=== PATIENT | male | born 1945 | race Caucasian/White ===

== ENCOUNTER 2023-11-17 16:38 | Inpatient (IN) ==
--- NOTE | 2023-11-17 17:18 | Emergency Department Note ---
Impression & Plan Syncope, Laceration of eyebrow, right, Atrial fibrillation, Bradycardia, Facial bone fracture, Hypokalemia ED Provider Note NAME: CONNIE PENA AGE: 77 SEX: M : 1945 ARRIVES VIA: Ambulance INFORMANT: Patient, patient's family, EMS ED PROVIDER(S): Jaziel Camacho DO CHIEF COMPLAINT: Syncope HPI: The patient is a 77-year-old male who presented to the emergency department for an evaluation after having a syncopal episode. The patient was with a family member when he had an episode where he passed out. He fell striking his face. The patient complains of a headache. He denies having any chest pain or difficulty breathing. He denies having any nausea or vomiting. The patient denies having any recent illnesses such as fever or cough. The patient does have a history of hypertension. Apparently has been compliant with his outpatient medications otherwise. The patient presented by ambulance. He did suffer a laceration to his forehead. The wound was cared for prior to arrival. ROS: See above HPI for pertinent positives & negatives. A total of 10 systems reviewed and were otherwise negative. PAST MEDICAL HISTORY: See Below PAST SURGICAL HISTORY: See Below FAMILY HISTORY: See Below SOCIAL HISTORY: See Below HOME MEDICATIONS: See Below ALLERGIES: See Below VITALS: See Below PHYSICAL EXAMINATION: GENERAL: The patient is awake and alert. He does appear to be somewhat anxious. EYES: The conjunctivae are clear. The pupils are round and reactive. There is a laceration above the right eyelid. There is ecchymosis on the right upper eyelid. EARS, NOSE, MOUTH AND THROAT: The nose is without any evidence of any deformity. Mucous membranes are moist. Tongue is midline. NECK: The neck is nontender and supple. RESPIRATORY: Normal respiratory effort is noted there is no evidence of wheezing rhonchi or rales CARDIOVASCULAR: Irregular heart sounds were noted to auscultation. There is no definite murmur. GASTROINTESTINAL: The abdomen is soft. Abdomen is nontender. BACK: No midline tenderness or or step-off noted range of motion in flexion extension as well as rotation no signs of muscle spasm noted MUSCULOSKELETAL/EXTREMITIES: There is no evidence of gross deformity full range of motion is noted in the hips and shoulders. SKIN: There is no obvious evidence of any rash. There are no petechiae, pallor or cyanosis noted. NEUROLOGIC: Patient is awake and oriented to person place and situation. The patient recognizes his family numbers. Strength was symmetric. MEDICAL DECISION MAKING: The patient is a 77-year-old male who presented to the emergency department after having a syncopal episode. The patient arrived by ambulance. He did land directly on his face and injured his right eye and suffered multiple facial bone fractures. I discussed the patient's laboratory and radiographic studies with him. Ultimately I feel the likely cause of his syncope was bradycardia and new onset atrial fibrillation. When the patient arrived he did have a prehospital EKG which showed atrial fibrillation at 49 bpm but part of EKG showed a very slow rhythm which could be closer to the 30 bpm range. I discussed the patient's laboratory and radiographic studies with him. Given his findings I discussed his condition with the on-call [facility]. The patient will likely require further inpatient management as well as possible evaluation by oral maxillofacial. Triage Nursing notes reviewed. Prior medical records reviewed Vital Signs: reviewed and remarkable for no significant abnormalities Differential diagnosis: Vasovagal event, dehydration, infection, hypoglycemia, electrolyte abnormalities, cardiac sources, intracerebral event, pulmonary embolism, seizure, toxicologic, neurologic, as well as other pathologies. ER treatment provided: See below Diagnostics interpreted by me: ECG: EKG was obtained in the emergency department. My interpretation is atrial fibrillation at 96 bpm. PVCs were noted. Right bundle branch block pattern was noted. No previous tracing was available. Prehospital EKG was evaluated. My interpretation is atrial fibrillation at 49 bpm. No ectopy was noted but this compares similar to the tracing obtained in the emergency department. Cardiac Monitoring: An order was placed for continuous cardiac monitoring. The monitor shows a rate of 72 bpm with atrial fibrillation. Laboratory studies: As stated above and show below. Imaging studies: See below. Radiographic imaging was reviewed by myself Consultation(s): I discussed this case with Dr. Ricci who is on-call for the [facility] Past Med/Surg History Medical History High cholesterol Hypothyroid Dementia Hypertension Social History Smoking Status: Former smoker Tobacco Type: Pipe Preferred Language: Icelandic Feels Safe at Home: Yes Results & Data (ED) Vital Signs Vital Signs - 24 hr 11/17/23 16:53 11/17/23 17:00 11/17/23 17:17 Pulse Rate 97 H 85 91 H Pulse Rate from SpO2 Sensor 87 Pulse Rhythm Irregular Respiratory Rate 16 17 Respiratory Effort / Characteristics Non-Labored Spontaneous Respiratory Depth Normal Respiratory Pattern Regular Blood Pressure 102/74 124/83 Blood Pressure Mean 83 96 Blood Pressure Position Lying Pulse Oximetry 93 93 Oxygen Delivery Method Room Air Room Air Sepsis Recent Fever Within 48 Hours No Sepsis New/Unexplained Change in Mental Status N/A Sepsis Action Taken by Nursing No Action Required 11/17/23 17:30 11/17/23 18:10 11/17/23 18:30 Pulse Rate 73 69 62 Pulse Rate from SpO2 Sensor 76 72 Pulse Rhythm Respiratory Rate 17 19 17 Respiratory Effort / Characteristics Respiratory Depth Respiratory Pattern Blood Pressure 117/84 127/70 119/84 Blood Pressure Mean 95 89 95 Blood Pressure Position Pulse Oximetry 96 99 95 Oxygen Delivery Method Room Air Room Air Room Air Sepsis Recent Fever Within 48 Hours Sepsis New/Unexplained Change in Mental Status Sepsis Action Taken by Nursing 11/17/23 19:00 Pulse Rate 72 Pulse Rate from SpO2 Sensor 70 Pulse Rhythm Respiratory Rate 20 Respiratory Effort / Characteristics Respiratory Depth Respiratory Pattern Blood Pressure 138/88 Blood Pressure Mean 104 Blood Pressure Position Pulse Oximetry 92 Oxygen Delivery Method Room Air Sepsis Recent Fever Within 48 Hours Sepsis New/Unexplained Change in Mental Status Sepsis Action Taken by Detention Medications Current Medication List: was personally reviewed by me Laboratory Data Attestation: I reviewed the patient's lab results. 11/17/23 Unknown 11/17/23 Unknown Lab Results 11/17/23 Range/Units Unknown WBC 7.46 (4.8-10.8) K/ul RBC 4.72 (4.70-6.10) M/uL Hgb 14.9 (14.0-18.0) g/dl Hct 44.1 (42.0-52.0) % MCV 93.4 (80.0-100.0) fL MCH 31.6 (25.0-34.0) pg MCHC 33.8 (32.0-36.0) g/dL RDW Std Deviation 46.5 H (36.4-46.3) fL RDW Coeff of Gay 13.6 (11.5-14.5) % Plt Count 189 (130-400) K/uL MPV 10.6 (9.4-12.4) fL Immature Gran % (Auto) 0.4 % Neut % (Auto) 55.1 % Lymph % (Auto) 30.7 % [place] % (Auto) 10.7 % Eos % (Auto) 2.7 % Baso % (Auto) 0.4 % Neut # (Auto) 4.11 (1.40-6.50) K/uL Lymph # (Auto) 2.29 (1.20-3.40) K/uL [place] # (Auto) 0.80 H (0.11-0.59) K/uL Eos # (Auto) 0.20 (0.00-0.50) K/uL Baso # (Auto) 0.03 (0.00-0.20) K/uL Immature Gran # (Auto) 0.03 (0.01-0.20) K/uL PT 11.4 (9.0-12.0) Seconds INR 1.0 (0.9-1.1) APTT 26 (21-31) Seconds PTT Ratio 0.9 Sodium 140 (136-145) mmol/L Potassium 3.3 L (3.5-5.1) mmol/L Chloride 108 H (98-107) mmol/L Carbon Dioxide 20 L (21-32) mmol/L Anion Gap 12 H (3-11) BUN 21 (6-23) mg/dl Creatinine 0.82 (0.6-1.4) mg/dl Est Cr Clr Drug Dosing Not Reportable Est GFR ( Amer) 99.6 ml/min Est GFR (Non-Af Amer) 85.9 ml/min BUN/Creatinine Ratio 25.6 H (10-20) Glucose 138 H (70-99(Fasting)) mg/dl Calcium 8.7 (8.6-10.3) mg/dl Magnesium 1.9 (1.7-2.4) mg/dl Total Bilirubin 0.5 (0.2-1.0) mg/dl AST 23 (13-39) U/L ALT 18 (7-52) U/L Alkaline Phosphatase 84 (34-104) U/L Total Creatine Kinase 101 (30-223) U/L Troponin I High Sens 2.6 (0-20) pg/ml Total Protein 6.3 (6.0-8.3) gm/dl Albumin 4.0 (3.4-5.0) gm/dl Globulin 2.3 L (2.5-4.0) gm/dl Albumin/Globulin Ratio 1.7 (0.9-2) TSH 1.807 (0.300-4.500) uIu/ml Administered Medications Discontinued Medications Sodium Chloride (Nss) 500 mls @ 999 mls/hr IV .Q31M JENNA Stop: 11/17/23 18:00 Last Infusion: 11/17/23 18:45 Dose: Infused Documented By: Admin: 11/17/23 17:29 Dose: 999 mls/hr Documented By: STEVE Potassium Chloride (K Robert / Wtr) 10 meq in 100 mls @ 100 mls/hr IV ONE ONE Stop: 11/17/23 18:54 Last Infusion: 11/17/23 20:00 Dose: Infused Documented By: Admin: 11/17/23 18:51 Dose: 100 mls/hr Documented By: BUCK Magnesium Sulfate/Dextrose (Magnesium Sulfate / D5w) 1 gm in 100 mls @ 100 mls/hr IV NOW STA Stop: 11/17/23 18:54 Last Infusion: 11/17/23 20:00 Dose: Infused Documented By: Admin: 11/17/23 18:51 Dose: 100 mls/hr Documented By: BUCK Lidocaine HCl (Xylocaine 1%/Sod Bicarb 20 Ml Vial) 20 ml INFIL NOW ONE Stop: 11/17/23 17:19 Last Admin: 11/17/23 20:05 Dose: Not Given Documented By: EVAN Imaging Data Attestation: I personally reviewed and interpreted this imaging study as follows: My Impression: CT of the brain was obtained in the emergency department. My interpretation is no intracranial hemorrhage or mass effect, final report below. 1 view chest x-ray was obtained in the emergency department. My interpretation is no free air or definite filtrate, final report below. Radiologist's Impression: Cervical Spine CT 11/17/23 17:16 CT OF THE CERVICAL SPINE WITHOUT CONTRAST CLINICAL HISTORY: fall COMPARISON STUDY: No previous studies for comparison. TECHNIQUE: Helical axial images of the cervical spine were obtained without IV contrast. Sagittal and coronal reconstructions were viewed. Automated exposure control was utilized for the study. A dose lowering technique was utilized adhering to the principles of ALARA. FINDINGS: Alignment of the cervical spine is anatomic. Vertebral body heights are maintained. No acute cervical spine fracture or subluxation is present. There is no prevertebral edema. Facet joints are intact. Multifocal venous gas is noted. Gas within the anterior epidural space is likely within epidural venous plexus. Mild multilevel degenerative changes within the cervical spine are present. Several acute right-sided facial fractures are better depicted on the head CT which will be reported separately. IMPRESSION: 1. No acute cervical spine fracture or subluxation. 2. Multifocal venous gas. Although nonspecific, this is likely related to IV insertion. ACT 112: Negative or not required by law. Electronically signed by: Federico Pitt M.D. 11/17/2023 7:44 PM Chest X-Ray 11/17/23 17:16 XR chest 1V portable CLINICAL HISTORY: fall COMPARISON STUDY: No previous studies for comparison. FINDINGS: No pneumothorax is present. There is no definite pleural effusion. There is a suspected large hiatal hernia. In addition, there is hazy right lower lung opacity. This may also be related to the pleural effusion. There is no evidence for pulmonary edema. IMPRESSION: 1. No pneumothorax. 2. Large hiatal hernia. 3. Apparent hazy right lower lung opacity. This is indeterminate although may also be related to the hiatal hernia. Follow-up nonemergent PA and lateral chest radiographs are recommended for further evaluation. ACT 112: Negative or not required by law. Electronically signed by: Federico Pitt M.D. 11/17/2023 6:[address] 11/17/23 17:16 CT OF THE HEAD WITHOUT CONTRAST CLINICAL HISTORY: syncope COMPARISON STUDY: No previous studies for comparison. CT DOSE: 1153.31 mGy.cm TECHNIQUE: Helical axial images of the head were obtained without IV contrast. Automated exposure control was utilized for the study. A dose lowering technique was utilized adhering to the principles of ALARA. FINDINGS: No acute intracranial hemorrhage, midline shift or mass effect is present. The ventricular system is unremarkable. The basal cisterns are patent. No extra-axial collections are identified. Note is made of acute comminuted displaced fractures of the anterior and posterior anthony of the right maxillary sinus as well as the right orbital floor. There is also an acute nondisplaced fracture of the lateral and anterior anthony of the right orbit. The right globe appears intact. There is no retrobulbar hematoma however there is suggestion of mild right-sided proptosis. Gas within the adjacent soft tissues is related to the fracture. The right maxillary sinus is largely opacified. In addition, there is extensive venous gas, particularly within the cavernous sinus as well as gas within the right superior ophthalmic vein. There is a right periorbital contusion. IMPRESSION: 1. No acute intracranial findings. 2. No calvarial fractures. 3. Right periorbital contusion. Acute fractures of the anthony of the right maxillary sinus and right orbit, as described above. Adjacent soft tissue gas. Mild right proptosis without definite retrobulbar hematoma. Opacified right maxillary sinus related to the fractures. Facial bone CT is recommended for further evaluation. 4. Extensive venous gas. This is nonspecific but may be related to IV placement. ACT 112: Negative or not required by law. Electronically signed by: Federico Pitt M.D. 11/17/2023 7:05 PM Discharge Plan Visit Data Chief Complaint: Syncope ED Provider: Jaziel Camacho Discharge Problem: Syncope, Laceration of eyebrow, right, Atrial fibrillation, Bradycardia, Facial bone fracture, Hypokalemia Patient Disposition: Being Evaluated by Hospitalist Discharge Instructions Activity Restrictions/Additional Instructions: Keep a thin layer of bacitracin ointment applied to the wound until the sutures are removed. Do not do anything that would cause the stitches to pull out. Do not swim or submerge your head under water. Showering is acceptable and encouraged after 24 hours. Suture removal should occur in 6-7 days. Once the stitches are removed, the laceration is most prone to opening back up because it is not fully healed. Be cautious with the laceration until it is fully healed. Watch for signs and symptoms of infection including but not limited to: spreading skin redness, worsening pain, worsening swelling, red streaks, pus drainage, wound pulling apart. Scar prevention: aggressively protect the scar from UV light for up to 1 year. Once fully healed, gently massage the scar to break up scar tissue. You can also use scar reducing creams with silicone such as ScarAway silicone serum found at pharmacies over the counter of which may be applied according to package. Please do not apply for more than 3 months. Use this after wound is fully healed. Please do not use creams with vitamin E, as these can cause irritation and skin thinning. If you are unhappy with the scar after 6 months to 1 year, consider seeing a plastic surgeon for possible scar revision. Forms Stand Alone Forms: My [facility] Referrals Referrals: PCP,NO [Physician] - Discharge Problem: Syncope Qualifiers: Syncope type: unspecified Qualified Code(s): R55 - Syncope and collapse Laceration of eyebrow, right Qualifiers: Encounter type: initial encounter Qualified Code(s): S01.111A - Laceration without foreign body of right eyelid and periocular area, initial encounter Atrial fibrillation Qualifiers: Atrial fibrillation type: unspecified Qualified Code(s): I48.91 - Unspecified atrial fibrillation Facial bone fracture Qualifiers: Encounter type: initial encounter Facial bone/location: unspecified facial bone Fracture type: closed Qualified Code(s): S02.92XA - Unspecified fracture of facial bones, initial encounter for closed fracture
[2023-11-17 17:19] LABS: Basophils # (auto) 0.03 K/uL (0.00-0.20); Basophils % (auto) 0.4 %; Eosinophils % (auto) 2.7 %; Hematocrit (blood only) 44.1 % (42.0-52.0); Hemoglobin 14.9 g/dl (14.0-18.0); Immature Granulocytes # (auto) 0.03 K/uL (0.01-0.20); Immature Granulocytes % (auto) 0.4 %; Lymphocytes # (auto) 2.29 K/uL (1.20-3.40); Lymphocytes % (auto) 30.7 %; Mean Corpuscular Hemoglobin 31.6 pg (25.0-34.0); Mean Corpuscular Hgb Conc 33.8 g/dL (32.0-36.0); Mean Corpuscular Volume 93.4 fL (80.0-100.0); Mean Platelet Volume 10.6 fL (9.4-12.4); Monocytes % (auto) 10.7 %; Neutrophils # (auto) 4.11 K/uL (1.40-6.50); Neutrophils % (auto) 55.1 %; Platelet Count 189 K/uL (130-400); RDW Coefficient of Variation 13.6 % (11.5-14.5); RDW Standard Deviation 46.5 fL (36.4-46.3); Red Blood Count 4.72 M/uL (4.70-6.10); White Blood Count 7.46 K/ul (4.8-10.8)
[2023-11-17] MEDS: SODIUM CHLORIDE 0.9% 500 ML IV SCH (17:29)
[2023-11-17 17:41] LABS: Troponin I High Sensitivity 2.6 pg/ml (0-20)
[2023-11-17 17:42] LABS: Alanine Aminotransferase 18 U/L (7-52); Albumin Globulin Ratio 1.7 (0.9-2); Alkaline Phosphatase 84 U/L (34-104); Anion Gap 12 (3-11); Aspartate Aminotransferase 23 U/L (13-39); BUN Creatinine Ratio 25.6 (10-20); Bilirubin,Total 0.5 mg/dl (0.2-1.0); Blood Urea Nitrogen 21 mg/dl (6-23); Calcium 8.7 mg/dl (8.6-10.3); Carbon Dioxide 20 mmol/L (21-32); Chloride 108 mmol/L (98-107); Creatine Kinase 101 U/L (30-223); Est GFR (African American) 99.6 ml/min; Est GFR (Non-African American) 85.9 ml/min; Globulin 2.3 gm/dl (2.5-4.0); Glucose 138 mg/dl (70-99(Fasting)); Potassium 3.3 mmol/L (3.5-5.1); Sodium 140 mmol/L (136-145); Total Protein 6.3 gm/dl (6.0-8.3)
[2023-11-17 17:47] LABS: Partial Thromboplastin Ratio 0.9; Partial Thromboplastin Time 26 Seconds (21-31); Prothrombin Time 11.4 Seconds (9.0-12.0)
[2023-11-17 17:51] LABS: Thyroid Stimulating Hormone 1.807 uIu/ml (0.300-4.500)
[2023-11-17 18:29] LABS: Magnesium 1.9 mg/dl (1.7-2.4)
--- NOTE | 2023-11-17 18:46 | XRay Report ---
XR chest 1V portable CLINICAL HISTORY: fall COMPARISON STUDY: No previous studies for comparison. FINDINGS: No pneumothorax is present. There is no definite pleural effusion. There is a suspected lar ge hiatal hernia. In addition, there is hazy right lower lung opacity. This may also be related to th e pleural effusion. There is no evidence for pulmonary edema. IMPRESSION: 1. No pneumothorax. 2. Large hiatal hernia. 3. Apparent hazy right lower lung opacity. This is indeterminate although may also be related to the hiatal hernia. Follow-up nonemergent PA and lateral chest radiographs are recommended for further arash luation. ACT 112: Negative or not required by law. Electronically signed by: Federico Pitt M.D. 11/17/2023 6:44 PM
[2023-11-17] MEDS: POTASSIUM CHLORIDE / WTR 10 MEQ/100 ML PLCT IV ONE (18:51)
[2023-11-17] MEDS: MAGNESIUM SULFATE / D5W 1 GM/100 ML BAG IV STA (18:51)
--- NOTE | 2023-11-17 19:08 | CT Scan Report ---
CT OF THE HEAD WITHOUT CONTRAST CLINICAL HISTORY: syncope COMPARISON STUDY: No previous studies for comparison. CT DOSE: 1153.31 mGy.cm TECHNIQUE: Helical axial images of the head were obtained without IV contrast. Automated exposure con trol was utilized for the study. A dose lowering technique was utilized adhering to the principles o f ALARA. FINDINGS: No acute intracranial hemorrhage, midline shift or mass effect is present. The ventricular system is unremarkable. The basal cisterns are patent. No extra-axial collections are identified. Not e is made of acute comminuted displaced fractures of the anterior and posterior anthony of the right ma xillary sinus as well as the right orbital floor. There is also an acute nondisplaced fracture of the lateral and anterior anthony of the right orbit. The right globe appears intact. There is no retrobulb ar hematoma however there is suggestion of mild right-sided proptosis. Gas within the adjacent soft t issues is related to the fracture. The right maxillary sinus is largely opacified. In addition, there is extensive venous gas, particularly within the cavernous sinus as well as gas within the right sup erior ophthalmic vein. There is a right periorbital contusion. IMPRESSION: 1. No acute intracranial findings. 2. No calvarial fractures. 3. Right periorbital contusion. Acute fractures of the anthony of the right maxillary sinus and right o rbit, as described above. Adjacent soft tissue gas. Mild right proptosis without definite retrobulbar hematoma. Opacified right maxillary sinus related to the fractures. Facial bone CT is recommended fo r further evaluation. 4. Extensive venous gas. This is nonspecific but may be related to IV placement. ACT 112: Negative or not required by law. Electronically signed by: Fedreico Pitt M.D. 11/17/2023 7:05 PM
[2023-11-17] MEDS: LIDO/EPINEPHRINE/SOD BICARB 50 ML VIAL INFIL ONE (19:20)
--- NOTE | 2023-11-17 19:21 | Emergency Department Note ---
ED Visit Note I was asked by ED attending Dr. Camacho to evaluate and repaired the patient's laceration just under his right eyebrow. Please refer to Dr. Camacho's note for full details on the patient's emergency department visit, workup, and disposition. The laceration is located just under the right eyebrow, slightly irregular but mostly curvilinear in nature. Does extend into the subcutaneous tissue with mild persistent bleeding. Laceration repair performed by myself Procedure: Wound was anesthetized with 3 mL lidocaine 1% with epinephrine. Copiously irrigated with sterile saline. Draped. Repaired with 5, 6-0 nylon simple interrupted sutures. Dressed with bacitracin ointment. Total laceration length 2.5 cm. Suture removal in 6-7 days. Keep a thin layer of bacitracin ointment applied to the wound until sutures are removed Outlined scar prevention techniques. .
--- NOTE | 2023-11-17 19:47 | CT Scan Report ---
CT OF THE CERVICAL SPINE WITHOUT CONTRAST CLINICAL HISTORY: fall COMPARISON STUDY: No previous studies for comparison. TECHNIQUE: Helical axial images of the cervical spine were obtained without IV contrast. Sagittal a nd coronal reconstructions were viewed. Automated exposure control was utilized for the study. A do se lowering technique was utilized adhering to the principles of ALARA. FINDINGS: Alignment of the cervical spine is anatomic. Vertebral body heights are maintained. No acut e cervical spine fracture or subluxation is present. There is no prevertebral edema. Facet joints are intact. Multifocal venous gas is noted. Gas within the anterior epidural space is likely within epi dural venous plexus. Mild multilevel degenerative changes within the cervical spine are present. Claribel ral acute right-sided facial fractures are better depicted on the head CT which will be reported sepa rately. IMPRESSION: 1. No acute cervical spine fracture or subluxation. 2. Multifocal venous gas. Although nonspecific, this is likely related to IV insertion. ACT 112: Negative or not required by law. Electronically signed by: Federico Pitt M.D. 11/17/2023 7:44 PM
[2023-11-17] MEDS: XYLOCAINE 1%/SOD BICARB 20 ML VIAL INFIL ONE (20:05)
[2023-11-17] MEDS: AMPICILLIN/SULBACTAM SOD 3,000 MG in SODIUM CHLOR 0.9% MINI-B 100 ML IV STA (21:13)
[2023-11-17] MEDS: POTASSIUM CHLORIDE CRTAB 20 MEQ TABCR PO STA ×2 (21:55→23:38)
[2023-11-17] MEDS: MAGNESIUM SULFATE / D5W 1 GM/100 ML BAG IV ONE (22:01)
[2023-11-17] MEDS: POTASSIUM CHLORIDE 20 MEQ in LACTATED RINGER'S 1,000 ML IV ONE (22:01)
[2023-11-17] MEDS: Patient's HEIGHT &/or WEIGHT Needed ONE (22:06)
--- NOTE | 2023-11-17 23:10 | History & Physical Report ---
Date of Service November 17, 2023 Assessment & Plan (1) Atrial fibrillation with controlled ventricular rate: Plan: New onset as per family Rule out tachybradycardia syndrome given bradycardic episode as potential reason for syncopal event, Aricept possibly contributory to bradycardic event Traumatic right orbitozygomatic fracture secondary to fall hypertension, stable BP at the ER hyperlipidemia, on statin Rx hypothyroidism, euthyroid as of today's TSH hx dementia Hyperglycemia ro DM Hypokalemia possibly from decreased p.o. intake today as per family past tobacco abuse PCU TTE, Cardiology consult Re: New onset A-fib Hold off on AVN blockers for A-fib for now given bradycardic event Hold Aricept for now given transient bradycardia Hold off on anticoagulation given traumatic right facial fracture with epistaxis Check orthostatic vitals as alternative reason for syncope Maxillofacial consult Re: Traumatic right facial fracture N.p.o. in anticipation of surgery Replace potassium Check hemoglobin A1c DVT prophylaxis. SCDs Re: Traumatic facial fracture Full code as per , Ms. Kayy Lord. She requests updates from providers through [phone]. Text document was generated using [employer] voice recognition software. It may contain grammatical or spelling errors. Kindly contact undersigned for clarification of any documentation item in question. History of Present Illness Primary Care Provider: CHRIS Candelaria History obtained from patient, family, and records. Limited history from patient secondary to dementia. Patient is a resident of [facility] who is in town with his to visit her granddaughter who is a [employer] student. Medical history significant for hypertension, hyperlipidemia, hypothyroidism, mood disorder, dementia, past tobacco abuse. Patient was walking with a family member when patient suddenly passed out resulting in facial trauma. Was just out for a few moments as per family. Epistaxis with right facial contusion/upper brow laceration noted. Patient denies chest pain, SOB. Denies visual problems posttrauma. Note witnessed seizures or urinary incontinence. Patient says he has passed out before but cannot give additional details. Patient was not eating well today for some reason as per family. No flulike symptoms. Right eyebrow laceration repaired at the ER. A-fib noted at the ER. No prior episodes as per family. Transient bradycardia of 50s noted at the ER. Medical History as above Surgical History : Appendectomy, carpal tunnel surgery Family History : DM Personal/Social history : Past tobacco abuse, no EtOH intake, lives with Allergies Allergy/AdvReac Type Severity Reaction Status Date / Time aspirin AdvReac Nausea Verified 11/17/23 21:12 Home Medications Medication Instructions Recorded Confirmed Type atorvastatin 10 mg tablet 10 mg PO QPM 11/17/23 11/17/23 History calcium carbonate (Calcium 600) 600 mg PO DAILY 11/17/23 11/17/23 History cholecalciferol (vitamin D3) 25 25 mcg PO DAILY 11/17/23 11/17/23 History mcg (1,000 unit) tablet (Vitamin D3) citalopram 10 mg tablet 10 mg PO QAM 11/17/23 11/17/23 History cyanocobalamin (vitamin B-12) 500 500 mcg PO DAILY 11/17/23 11/17/23 History mcg tablet (Vitamin B-12) donepezil 5 mg tablet 5 mg PO QPM 11/17/23 11/17/23 History ferrous sulfate 325 mg (65 mg 325 mg PO DAILY 11/17/23 11/17/23 History iron) tablet (iron) glucosamine sulf dipot 1 cap PO DAILY 11/17/23 11/17/23 History chlr,msm,chond 550 mg-C 30 mg-kathie 1 mg capsule (Glucosamine Chondroitin) levothyroxine 125 mcg tablet 125 mcg PO QPM 11/17/23 11/17/23 History lisinopril 5 mg tablet 5 mg PO QAM 11/17/23 11/17/23 History magnesium 250 mg tablet 250 mg PO DAILY 11/17/23 11/17/23 History multivitamin 1 tab PO DAILY 11/17/23 11/17/23 History omega-3 fatty acids 1,000 mg 1,000 mg PO DAILY 11/17/23 11/17/23 History capsule omeprazole 40 mg capsule,delayed 40 mg PO DAILY 11/17/23 11/17/23 History release turmeric root extract 500 mg tablet 500 mg PO DAILY 11/17/23 11/17/23 History vitamin A-vitamin C-vit E-min 2 tab PO DAILY 11/17/23 11/17/23 History tablet Past Med/Surg History Medical History High cholesterol Hypothyroid Dementia Hypertension Social History (Reviewed 11/17/23 @ 17:22 by HAFSA Jeter Smoking Status: Former smoker Tobacco Type: Pipe Hx Alcohol Use: Yes Alcohol type: beer Hx Substance Use: No Preferred Language: Croatian Communication Ability: Effective Software Test Analyst Required: No Beliefs That Will Affect Care: None Current Living Situation: Spouse Feels Safe at Home: Yes Safety Concerns: Feels Safe At This Time Assistive Devices: None Review of Systems Review of Systems: Could not be reliably obtained secondary to dementia Physical Exam Physical Exam: GENERAL: Comfortable, demented, pleasant, no respiratory distress SKIN: Normal color, warm HEENT: alopecia, tender ecchymosis right lateral orbital area , pink palpebral conjunctivae, dry buccal mucosa NECK : Supple, no tenderness CHEST : CTA, no tenderness HEART : Irregular, no obvious murmurs ABDOMEN: Some distention, nontender EXTREMITIES : No LE swelling/tenderness, no other conspicuous deformities noted NEUROLOGIC : Demented, no facial asymmetry, gait and stance not assessed Results & Data Results & Data Vital Signs (Past 12 Hours) Vital Signs Pulse Resp BP Pulse Ox O2 Del Method 11/17/23 21:12 56 L 11/17/23 20:33 95 Room Air 11/17/23 20:33 95 Room Air 11/17/23 19:00 72 20 138/88 92 Room Air 11/17/23 18:30 62 17 119/84 95 Room Air 11/17/23 18:10 69 19 127/70 99 Room Air 11/17/23 17:30 73 17 117/84 96 Room Air 11/17/23 17:17 91 H 11/17/23 17:00 85 17 124/83 93 Room Air 11/17/23 16:53 97 H 16 102/74 93 Room Air Laboratory Results Laboratory Results WBC 7.46 K/ul (4.8-10.8) 11/17/23 Unknown RBC 4.72 M/uL (4.70-6.10) 11/17/23 Unknown Hgb 14.9 g/dl (14.0-18.0) 11/17/23 Unknown Hct 44.1 % (42.0-52.0) 11/17/23 Unknown MCV 93.4 fL (80.0-100.0) 11/17/23 Unknown MCH 31.6 pg (25.0-34.0) 11/17/23 Unknown MCHC 33.8 g/dL (32.0-36.0) 11/17/23 Unknown RDW Std Deviation 46.5 fL (36.4-46.3) H 11/17/23 Unknown RDW Coeff of Gay 13.6 % (11.5-14.5) 11/17/23 Unknown Plt Count 189 K/uL (130-400) 11/17/23 Unknown MPV 10.6 fL (9.4-12.4) 11/17/23 Unknown Immature Gran % (Auto) 0.4 % 11/17/23 Unknown Neut % (Auto) 55.1 % 11/17/23 Unknown Lymph % (Auto) 30.7 % 11/17/23 Unknown Lanier % (Auto) 10.7 % 11/17/23 Unknown Eos % (Auto) 2.7 % 11/17/23 Unknown Baso % (Auto) 0.4 % 11/17/23 Unknown Neut # (Auto) 4.11 K/uL (1.40-6.50) 11/17/23 Unknown Lymph # (Auto) 2.29 K/uL (1.20-3.40) 11/17/23 Unknown Lanier # (Auto) 0.80 K/uL (0.11-0.59) H 11/17/23 Unknown Eos # (Auto) 0.20 K/uL (0.00-0.50) 11/17/23 Unknown Baso # (Auto) 0.03 K/uL (0.00-0.20) 11/17/23 Unknown Immature Gran # (Auto) 0.03 K/uL (0.01-0.20) 11/17/23 Unknown PT 11.4 Seconds (9.0-12.0) 11/17/23 Unknown INR 1.0 (0.9-1.1) 11/17/23 Unknown APTT 26 Seconds (21-31) 11/17/23 Unknown PTT Ratio 0.9 11/17/23 Unknown Sodium 140 mmol/L (136-145) 11/17/23 Unknown Potassium 3.3 mmol/L (3.5-5.1) L 11/17/23 Unknown Chloride 108 mmol/L (98-107) H 11/17/23 Unknown Carbon Dioxide 20 mmol/L (21-32) L 11/17/23 Unknown Anion Gap 12 (3-11) H 11/17/23 Unknown BUN 21 mg/dl (6-23) 11/17/23 Unknown Creatinine 0.82 mg/dl (0.6-1.4) 11/17/23 Unknown Est Cr Clr Drug Dosing Not Reportable 11/17/23 Unknown Est GFR ( Amer) 99.6 ml/min 11/17/23 Unknown Est GFR (Non-Af Amer) 85.9 ml/min 11/17/23 Unknown BUN/Creatinine Ratio 25.6 (10-20) H 11/17/23 Unknown Glucose 138 mg/dl (70-99(Fasting)) H 11/17/23 Unknown Calcium 8.7 mg/dl (8.6-10.3) 11/17/23 Unknown Magnesium 1.9 mg/dl (1.7-2.4) 11/17/23 Unknown Total Bilirubin 0.5 mg/dl (0.2-1.0) 11/17/23 Unknown AST 23 U/L (13-39) 11/17/23 Unknown ALT 18 U/L (7-52) 11/17/23 Unknown Alkaline Phosphatase 84 U/L (34-104) 11/17/23 Unknown Total Creatine Kinase 101 U/L (30-223) 11/17/23 Unknown Troponin I High Sens 2.6 pg/ml (0-20) 11/17/23 Unknown Total Protein 6.3 gm/dl (6.0-8.3) 11/17/23 Unknown Albumin 4.0 gm/dl (3.4-5.0) 11/17/23 Unknown Globulin 2.3 gm/dl (2.5-4.0) L 11/17/23 Unknown Albumin/Globulin Ratio 1.7 (0.9-2) 11/17/23 Unknown TSH 1.807 uIu/ml (0.300-4.500) 11/17/23 Unknown Impressions Cervical Spine CT 11/17/23 17:16 CT OF THE CERVICAL SPINE WITHOUT CONTRAST CLINICAL HISTORY: fall COMPARISON STUDY: No previous studies for comparison. TECHNIQUE: Helical axial images of the cervical spine were obtained without IV contrast. Sagittal and coronal reconstructions were viewed. Automated exposure control was utilized for the study. A dose lowering technique was utilized adhering to the principles of ALARA. FINDINGS: Alignment of the cervical spine is anatomic. Vertebral body heights are maintained. No acute cervical spine fracture or subluxation is present. There is no prevertebral edema. Facet joints are intact. Multifocal venous gas is noted. Gas within the anterior epidural space is likely within epidural venous plexus. Mild multilevel degenerative changes within the cervical spine are present. Several acute right-sided facial fractures are better depicted on the head CT which will be reported separately. IMPRESSION: 1. No acute cervical spine fracture or subluxation. 2. Multifocal venous gas. Although nonspecific, this is likely related to IV insertion. ACT 112: Negative or not required by law. Electronically signed by: Federico Pitt M.D. 11/17/2023 7:44 PM Chest X-Ray 11/17/23 17:16 XR chest 1V portable CLINICAL HISTORY: fall COMPARISON STUDY: No previous studies for comparison. FINDINGS: No pneumothorax is present. There is no definite pleural effusion. There is a suspected large hiatal hernia. In addition, there is hazy right lower lung opacity. This may also be related to the pleural effusion. There is no evidence for pulmonary edema. IMPRESSION: 1. No pneumothorax. 2. Large hiatal hernia. 3. Apparent hazy right lower lung opacity. This is indeterminate although may also be related to the hiatal hernia. Follow-up nonemergent PA and lateral chest radiographs are recommended for further evaluation. ACT 112: Negative or not required by law. Electronically signed by: Federico Pitt M.D. 11/17/2023 6:[address] 11/17/23 17:16 CT OF THE HEAD WITHOUT CONTRAST CLINICAL HISTORY: syncope COMPARISON STUDY: No previous studies for comparison. CT DOSE: 1153.31 mGy.cm TECHNIQUE: Helical axial images of the head were obtained without IV contrast. Automated exposure control was utilized for the study. A dose lowering technique was utilized adhering to the principles of ALARA. FINDINGS: No acute intracranial hemorrhage, midline shift or mass effect is present. The ventricular system is unremarkable. The basal cisterns are patent. No extra-axial collections are identified. Note is made of acute comminuted displaced fractures of the anterior and posterior anthony of the right maxillary sinus as well as the right orbital floor. There is also an acute nondisplaced fracture of the lateral and anterior anthony of the right orbit. The right globe appears intact. There is no retrobulbar hematoma however there is suggestion of mild right-sided proptosis. Gas within the adjacent soft tissues is related to the fracture. The right maxillary sinus is largely opacified. In addition, there is extensive venous gas, particularly within the cavernous sinus as well as gas within the right superior ophthalmic vein. There is a right periorbital contusion. IMPRESSION: 1. No acute intracranial findings. 2. No calvarial fractures. 3. Right periorbital contusion. Acute fractures of the anthony of the right maxillary sinus and right orbit, as described above. Adjacent soft tissue gas. Mild right proptosis without definite retrobulbar hematoma. Opacified right maxillary sinus related to the fractures. Facial bone CT is recommended for further evaluation. 4. Extensive venous gas. This is nonspecific but may be related to IV placement. ACT 112: Negative or not required by law. Electronically signed by: Federico Pitt M.D. 11/17/2023 7:05 PM Diagnostic Findings EKG as per my interpretation : Rate 95, A-fib, RAD, RBBB, T wave abnormalities inferior leads
[2023-11-17] MEDS ORDERED: traMADol HCL 50 MG TABLET PO PRN (23:14)
[2023-11-17] MEDS ORDERED: ACETAMINOPHEN 325 MG TAB PO PRN (23:14)
[2023-11-17] MEDS ORDERED: PROMETHAZINE HCL 6.25 MG in SODIUM CHLORIDE 0.9% 50 ML IV PRN (23:14)
--- NOTE | 2023-11-18 00:59 | CT Scan Report ---
Exam(s): CT FACIAL Without Contrast EXAM: CT Maxillofacial Without Intravenous Contrast CLINICAL HISTORY: Fracture TECHNIQUE: Axial computed tomography images of the face without intravenous contrast. CTDI is 36.26 mGy and DLP is 677.22 mGy-cm. Automated exposure control was utilized for the study. A dose lowering technique was utilized adhering to the principles of ALARA. COMPARISON: No relevant prior studies available. FINDINGS: Bones/joints: Minimally displaced blowout fracture of the right infraorbital rim. Mildly displaced fractures of the anterior, medial and lateral anthony of the right maxillary sinusitis which is blood-filled. Minimally displaced fracture of the right lateral and superior orbital anthony. Nondisplaced fracture of the right zygomatic arch. Soft tissues: Unremarkable. Orbits: Unremarkable. Sinuses: See above. There is mild mucosal thickening of the ethmoid and left maxillary sinuses. IMPRESSION: 1. Minimally displaced blowout fracture of the right infraorbital rim. 2. Mildly displaced fractures of the anterior, medial and lateral anthony of the right maxillary sinusitis which is blood-filled. 3. Minimally displaced fracture of the right lateral and superior orbital anthony. 4. Nondisplaced fracture of the right zygomatic arch. Electronically signed by: Akua Lima MD 11/18/23 00:59 AM
[2023-11-18 01:08] LABS: Hematocrit (blood only) 45.8 % (42.0-52.0)
[2023-11-18] MEDS: POTASSIUM CHLORIDE 20 MEQ in LACTATED RINGER'S 1,000 ML IV ONE (03:09)
[2023-11-18 05:19] LABS: Base Excess VBG 1.7 mEq/L; HCO3 VBG 27 mmol/L; Oxygen Saturation VBG 62.7 %; PCO2 VBG 42 mmHg (38-50); PO2 VBG 37 mmHg; pH VBG 7.41 (7.36-7.41)
[2023-11-18 05:22] LABS: Basophils # (auto) 0.02 K/uL (0.00-0.20); Basophils % (auto) 0.2 %; Eosinophils # (auto) 0.01 K/uL (0.00-0.50); Eosinophils % (auto) 0.1 %; Hematocrit (blood only) 40.8 % (42.0-52.0); Hemoglobin 13.4 g/dl (14.0-18.0); Immature Granulocytes # (auto) 0.13 K/uL (0.01-0.20); Immature Granulocytes % (auto) 1.3 %; Lymphocytes # (auto) 1.05 K/uL (1.20-3.40); Lymphocytes % (auto) 10.4 %; Mean Corpuscular Hemoglobin 31.3 pg (25.0-34.0); Mean Corpuscular Hgb Conc 32.8 g/dL (32.0-36.0); Mean Corpuscular Volume 95.3 fL (80.0-100.0); Mean Platelet Volume 10.7 fL (9.4-12.4); Monocytes % (auto) 9.9 %; Neutrophils # (auto) 7.89 K/uL (1.40-6.50); Neutrophils % (auto) 78.1 %; Platelet Count 184 K/uL (130-400); RDW Coefficient of Variation 13.7 % (11.5-14.5); Red Blood Count 4.28 M/uL (4.70-6.10)
[2023-11-18 06:25] LABS: Calcium 8.7 mg/dl (8.6-10.3); Potassium 4.4 mmol/L (3.5-5.1)
[2023-11-18 07:09] LABS: BUN Creatinine Ratio 21.8 (10-20); Creatinine Clr Calc Pharmacy 76.9 ml/min; Est GFR (African American) 97.2 ml/min; Est GFR (Non-African American) 83.8 ml/min
[2023-11-18 07:43] LABS: Estimated Average Glucose 120 mg/dl; Hemoglobin A1C 5.8 % (4.5-5.6)
[2023-11-18] MEDS: CYANOCOBALAMIN (B-12) 500 MCG TABLET PO SCH (07:58)
[2023-11-18] MEDS: MULTIVITAMIN TAB PO SCH (07:58)
[2023-11-18] MEDS: CITALOPRAM 20 MG TAB PO SCH (07:58)
[2023-11-18] MEDS: LACTATED RINGER'S 1,000 ML IV ONE (08:37)
--- NOTE | 2023-11-18 10:43 | Electrocardiogram Report ---
Test Reason : Blood Pressure : / mmHG Vent. Rate : 096 BPM Atrial Rate : 000 BPM P-R Int : 000 ms QRS Dur : 156 ms QT Int : 384 ms P-R-T Axes : 000 199 -30 degrees QTc Int : 485 ms Atrial fibrillation with premature ventricular or aberrantly conducted complexes Right bundle branch block Abnormal ECG No previous ECGs available Confirmed by Jaziel Johnson ([id number]) on 11/18/2023 10:43:19 AM Referred By: REFERRED SELF Confirmed By:Jaziel Johnson
--- NOTE | 2023-11-18 11:03 | Cardiology Consultation ---
Date of Consultation November 18, 2023 Assessment & Plan (1) Syncope: (2) Facial bone fracture: (3) Atrial fibrillation with controlled ventricular rate: (4) Mild aortic valve sclerosis: (5) Hypertension: Plan Assessment: 77 year-old male with known cognitive impairment presents after a witnessed syncopal episode. Unknown etiology with no prior syncopal episodes. concern for arrhythmia with no prodromal symptoms. Newly diagnosed Paroxysmal A- fib rate controlled. Plan: 1. Syncope: -Etiology unclear, concern for possible arrhythmia event given the lack of prodromal symptoms although difficult to determine given patient's cognitive status. -Hypokalemia on initial labs since corrected, otherwise unremarkable. -Patient found to be in A-fib at time of event with HR in the 40's. He spontaneously converted last evening and maintains NSR per review of telemetry -Review of telemetry demonstrates no profound bradycardia, no sinus pause or large conversion pause. No Ventricular arrhythmias or high PVC burden noted. -Echocardiogram obtained today demonstrates normal LVEF, mild aortic sclerosis without significant stenosis, mild AI and mild MR -Agree with holding Aricept at this time given bradycardia at time of admission. -Family is present and since they reside near [facility], they plan to establish cardiology care in that area. -Recommend that patient be arranged for protracted cardiac monitoring through a ZIO monitor or similar following discharge for further investigation into the event. 2. Facial bone fracture -Secondary to syncopal event. -No airway compromise -Continued management per primary team. 3. Atrial fibrillation, Rate controlled. -No prior history per discussion with family and staff -Echocardiogram does not demonstrate structural abnormality of the Left atrium suggesting that this may be new. -Patient spontaneously converted to NSR last evening and remains NSR per review of telemetry. -Recommend checking TSH given history of hypothyroidism -Not currently on any AV samir blocking agents. -[id number] score of 3 (age, gender, HTN) -Given his current facial fracture with epitaxis and the fact that he has since converted to NSR, would hold off on initiating oral anticoagulation therapy at this time. -Family plans to establish OP cardiology care in [place], [place] 4. Mild aortic Valve sclerosis -No significant stenosis and mild AI noted. -No changes to medication therapy or treatment plan. -No findings on echocardiogram to suggest a etiology or his event. -Would recommend follow up echo in one year once he establishes OP cardiology care. 5. HTN -Well controlled. -Patient is ok to resume his home dosing of Lisinopril 5mg PO QD. Patient is to remain on telemetry during course of hospitalization. When appropriate for discharge per primary team, recommend that patient have est ablished OP cardiology follow up and plan for protracted cardiac monitoring. Case has been discussed with Dr. Villa. Further recommendations regarding plan of care as per his assessment. I spent a total of 40 minutes on the date of service in preparation, delivery, documentation of the care provided to the patient excluding any time spent in the performance of separately billed services. GRAHAM Miranda [facility] Cardiology [facility] Supervising Physician Co-Signing Physician Notes Patient was seen and personally examined. Full assessment and plan as outlined above. Care and management discussed with advanced provider and personally endorsed 77-year-old male suffered a witnessed syncopal event last evening with associated facial trauma. Initial EKGs during transport and ER presentation atrial fibrillation. Spontaneous conversion to sinus rhythm with intermittent sinus bradycardia but no profound pauses Consistent history for tachybradycardia syndrome. Will avoid AV samir blocking medications given intermittent bradycardia Anticoagulation not initiated as above with recent facial trauma Suspect patient will ultimately require pacemaker insertion for management. Currently in sinus and no cardiac complaints though patient with underlying dementia and significant confabulation feels that may have been aggravated by dehydration, poor p.o. intake during recent travel. Will recommend outpatient event monitoring and ongoing cardiac care Patient family plans to return to home to [facility] and establish cardiac care there. Records should be provided I spent a total of 30 minutes additional on the date of service in preparation, delivery, and documentation of the care provided to this patient, excluding any time spent in the performance of separately billed services. History of Present Illness Reason for Consultation: syncope, Atrial fibrillation Requesting Physician: [facility] Hospitalist Attending Physician: Irwin Cavanaugh MD History of Present Illness HPI: Patient is a pleasant 77 year-old male that presented to the ED after sustaining a witnessed syncopal event. Patient is alert to self, but confused to place, time and event. Per review of notes and discussion with nursing staff it appears that patient is from the [facility] and was in town visiting his granddaughter who attends [employer]. He was walking with family when he was witnessed to suddenly pass out without warning, falling face first resulting in facial trauma. Per accout of family he was "out for a few minutes". Upon arrival, EKG was obtained and patient was found to be in Atrial fibrillation. Initial pre-hospital EKG reports a HR in the 40's. Repeat EKG upon arrival to the ED demonstrates A-fib with PVC rate 96bpm. patient carries a history of dementia and typically takes Aricept, HTN, HLD, Hypothyroidism. Review of telemetry demonstrates SR at time of exam, Rate 69bpm. Review of trends shows likely conversion from A-fib to NSR on 11/17/23 around 2026. There is no evidence of profound bradycardia, no significant sinus pause, and no conversion pause. Notation of an occasional dropped complex. No VT or high PVC burden. For echocardiogram today. patient is resting comfortably in bed at this time. Offers no cardiac complaints of chest pain, pressure or palpitations, no pre-syncope or syncope since time of arrival. He has no recall of the event and due to his current cognitive state has told multiple different fabrications of why he has a "black eye". Allergies Allergy/AdvReac Type Severity Reaction Status Date / Time aspirin AdvReac Nausea Verified 11/17/23 21:12 Home Medications Medication Instructions Recorded Confirmed Type atorvastatin 10 mg tablet 10 mg PO QPM 11/17/23 11/17/23 History calcium carbonate (Calcium 600) 600 mg PO DAILY 11/17/23 11/17/23 History cholecalciferol (vitamin D3) 25 25 mcg PO DAILY 11/17/23 11/17/23 History mcg (1,000 unit) tablet (Vitamin D3) citalopram 10 mg tablet 10 mg PO QAM 11/17/23 11/17/23 History cyanocobalamin (vitamin B-12) 500 500 mcg PO DAILY 11/17/23 11/17/23 History mcg tablet (Vitamin B-12) donepezil 5 mg tablet 5 mg PO QPM 11/17/23 11/17/23 History ferrous sulfate 325 mg (65 mg 325 mg PO DAILY 11/17/23 11/17/23 History iron) tablet (iron) glucosamine sulf dipot 1 cap PO DAILY 11/17/23 11/17/23 History chlr,msm,chond 550 mg-C 30 mg-kathie 1 mg capsule (Glucosamine Chondroitin) levothyroxine 125 mcg tablet 125 mcg PO QPM 11/17/23 11/17/23 History lisinopril 5 mg tablet 5 mg PO QAM 11/17/23 11/17/23 History magnesium 250 mg tablet 250 mg PO DAILY 11/17/23 11/17/23 History multivitamin 1 tab PO DAILY 11/17/23 11/17/23 History omega-3 fatty acids 1,000 mg 1,000 mg PO DAILY 11/17/23 11/17/23 History capsule omeprazole 40 mg capsule,delayed 40 mg PO DAILY 11/17/23 11/17/23 History release turmeric root extract 500 mg tablet 500 mg PO DAILY 11/17/23 11/17/23 History vitamin A-vitamin C-vit E-min 2 tab PO DAILY 11/17/23 11/17/23 History tablet Patient History Medical History (Updated 11/18/23 @ 11:13 by GRAHAM Miranda) Hypertension High cholesterol Hypothyroid Dementia Social History Smoking Status: Former smoker Tobacco Type: Pipe Hx Alcohol Use: Yes Alcohol type: beer Hx Substance Use: No Preferred Language: Afghan Communication Ability: Impaired Surgical Assistant Required: No Beliefs That Will Affect Care: None Current Living Situation: Spouse Feels Safe at Home: Yes Safety Concerns: Feels Safe At This Time Assistive Devices: None Review of Systems Review of Systems: All systems reviewed & are unremarkable except as noted in HPI & below Alert to person only. Hx of dementia Physical Exam Constitutional: well developed and well nourished; no acute distress Neck: normal visual inspection and trachea midline Respiratory: normal respiratory effort, lungs clear to auscultation Cardiovascular: Rate/Rhythm: regular rate and regular rhythm Heart Sounds: normal S1, normal S2 and + murmur (+1/6 systolic murmur ) Vessels: no JVD Extremities: no edema Skin: no rashes, warm and dry + ecchymosis (significant ecchymosis of the right eye ) Psychiatric: Orientation: alert and oriented to person; + not oriented to place and + not oriented to time Results & Data Vital Signs (Past 12 Hours) Vital Signs Temp Pulse Pulse Resp BP BP Pulse Ox 11/18/23 07:51 37.1 C 72 20 107/62 95 11/18/23 01:47 77 21 119/71 96 11/18/23 01:00 69 17 117/64 95 11/18/23 00:30 62 18 112/63 96 11/17/23 23:30 67 6 L 114/71 93 O2 Del Method 11/18/23 07:51 Room Air 11/18/23 01:47 Room Air 11/18/23 01:00 11/18/23 00:30 11/17/23 23:30 Laboratory Results Cardiac Enzymes 11/17/23 Range/Units Unknown AST 23 (13-39) U/L Troponin I High Sens 2.6 (0-20) pg/ml Coagulation 11/17/23 Range/Units Unknown PT 11.4 (9.0-12.0) Seconds APTT 26 (21-31) Seconds CBC 11/17/23 11/18/23 11/18/23 Range/Units Unknown 00:21 05:01 WBC 7.46 10.10 (4.8-10.8) K/ul RBC 4.72 4.28 L (4.70-6.10) M/uL Hgb 14.9 15.0 13.4 L (14.0-18.0) g/dl Hct 44.1 45.8 40.8 L (42.0-52.0) % Plt Count 189 184 (130-400) K/uL Neut # (Auto) 4.11 7.89 H (1.40-6.50) K/uL Lymph # (Auto) 2.29 1.05 L (1.20-3.40) K/uL [place] # (Auto) 0.80 H 1.00 H (0.11-0.59) K/uL Eos # (Auto) 0.20 0.01 (0.00-0.50) K/uL Baso # (Auto) 0.03 0.02 (0.00-0.20) K/uL Comprehensive Metabolic Panel 11/17/23 11/18/23 Range/Units Unknown 05:01 Sodium 140 140 (136-145) mmol/L Potassium 3.3 L 4.4 D (3.5-5.1) mmol/L Chloride 108 H 111 H (98-107) mmol/L Carbon Dioxide 20 L 24 (21-32) mmol/L BUN 21 19 (6-23) mg/dl Creatinine 0.82 0.87 (0.6-1.4) mg/dl Glucose 138 H 142 H (70-99(Fasting)) mg/dl Calcium 8.7 8.7 (8.6-10.3) mg/dl AST 23 (13-39) U/L ALT 18 (7-52) U/L Alkaline Phosphatase 84 (34-104) U/L Total Protein 6.3 (6.0-8.3) gm/dl Albumin 4.0 (3.4-5.0) gm/dl Intake and Output 11/17/23 11/18/23 11/18/23 22:59 06:59 14:59 Intake Total 800 / 1291.381 5829.000 / 0697.001 1888 / 1010 Balance 800 / 1727.464 3881.000 / 7085.493 4516 / 1010 Intake: IV 800 / 6053.324 3942.000 / 9143.483 6334 / 1010 Ampicillin/Sulbactam Sod 3,000 100 / 100 mg In Sodium Chlor 0.9% Mini-B 100 ml @ 200 mls/hr IV NOW STA Rx#:[id number] Magnesium Sulfate / D5w 1 gm In 100 / 200 100 / 200 100 ml @ 50 mls/hr IV ONE ONE Rx#:[id number] Potassium Chloride / Wtr 10 meq 100 / 100 In 100 ml @ 100 mls/hr IV ONE ONE Rx#:[id number] Potassium Chloride 20 meq In 1010.000 / 6571.463 3355 / 1010 Lactated Ringer's 1,000 ml @ 200 mls/hr IV .Q5H3M ONE Rx#: [id number] Sodium Chloride 0.9% 500 ml @ 500 / 500 999 mls/hr IV .Q31M [facility] Rx#: [id number] Other: Other Intake Source NPO # Unmeasured Voids 1 Weight 84 kg 85.1 kg 89 kg Weight Measurement Method Standing Scale Built in [facility] Built in [facility] Patient Weight 11/19/23 06:59 Weight 89 kg Diagnostic Findings Echocardiogram 11/18/2023 LVEF 60-65% Borderline concentric mild LVH Mild aortic sclerosis without significant stenosis Mild MR (1) Syncope Syncope type: unspecified Qualified Code(s): R55 - Syncope and collapse (2) Facial bone fracture Encounter type: initial encounter Facial bone/location: unspecified facial bone Fracture type: closed Qualified Code(s): S02.92XA - Unspecified fracture of facial bones, initial encounter for closed fracture
--- NOTE | 2023-11-18 13:24 | Hospitalist Progress Note ---
Date of Service November 18, 2023 Assessment & Plan (1) Atrial fibrillation with controlled ventricular rate: Plan: Tachybradycardia Syndrome Syncope likely due to above --ECHO: Left ventricle is normal in size. Borderline concentric LVH. Ventricle wall motion is normal. EF 60 to 60%. Aortic valve sclerosis mild, without significant aortic valve stenosis. Trace mitral regurgitation --Normal TSH Avoid AV samir blocking agent Continue to hold donepezil Appreciate cardiology input Will need follow-up with cardiology as outpatient for pacemaker Monitor on telemetry Facial bone fracture --Face CT:Minimally displaced blowout fracture of the right infraorbital rim. Mildly displaced fractures of the anterior, medial and lateral anthony of the right maxillary sinusitis which is blood-filled. Minimally displaced fracture of the right lateral and superior orbital anthony. Nondisplaced fracture of the right zygomatic arch. --Head CT:No acute intracranial findings. No calvarial fractures. Right periorbital contusion. Acute fractures of the anthony of the right maxillary sinus and right orbit, as described above. Adjacent soft tissue gas. Mild right proptosis without definite retrobulbar hematoma. Opacified right maxillary sinus related to the fractures. Facial bone CT is recommended for further evaluation. Extensive venous gas. This is nonspecific but may be related to IV placement. --Neck CT:No acute cervical spine fracture or subluxation. Fall precautions Denies any significant pain Also denies any visual changes Mental status at baseline per family Oromaxillary surgeon consulted Hypertension Blood pressure relatively low Hold lisinopril for now Monitor Hyperlipidemia Continue atorvastatin Hypothyroidism Normal TSH Continue levothyroxine Dementia Donepezil on hold as above Prediabetes HbA1c 5.8 Hypokalemia Replace and monitor DVT Px: SCDs Re: Traumatic facial fracture Code Status Full code Admission and Anticipated Discharge Date Admission Date: November 17, 2023 Subjective Patient is seen and examined at bedside Poor historian due to dementia Patient states having some facial tenderness Discussed with Cardiology today Also discussed with patient's family at bedside Denies any chest pain, dyspnea, dizziness, nausea, abd pain, change in vision No other complaints Review of Systems Review of Systems: All systems reviewed & are unremarkable except as noted in Subjective Physical Exam Physical Exam: Physical Exam: Vitals signs as noted above General Appearance:Moderately built and nourished, no apparent distress Head: normocephalic, +traumatic, right periorbital tenderness, ecchymosis Eyes: normal inspection, EOMI Neck: supple, Trachea midline Respiratory/Chest: Normal breath sounds, CTA, No accessory muscle use Cardiovascular: S1, S2, No murmur Abdomen/GI:Soft, Non tender, Bowel sounds present Extremities/Musculoskeletal:normal inspection, no edema Neurologic/Psych:AAOX2, grossly no focal neurological deficits, dementia Skin: normal color, warm Results & Data Results & Data Vital Signs (Past 12 Hours) Vital Signs Temp Pulse Resp BP Pulse Ox O2 Del Method 11/18/23 11:00 36.8 C 63 18 112/71 94 Room Air 11/18/23 07:51 37.1 C 72 20 107/62 95 Room Air 11/18/23 01:47 77 21 119/71 96 Room Air Laboratory Results Short CBC 11/17/23 11/18/23 11/18/23 Range/Units Unknown 00:21 05:01 WBC 7.46 10.10 (4.8-10.8) K/ul Hgb 14.9 15.0 13.4 L (14.0-18.0) g/dl Hct 44.1 45.8 40.8 L (42.0-52.0) % Plt Count 189 184 (130-400) K/uL BMP 11/17/23 11/18/23 Unknown 05:01 Sodium 140 140 Potassium 3.3 L 4.4 D Chloride 108 H 111 H Carbon Dioxide 20 L 24 BUN 21 19 Creatinine 0.82 0.87 Glucose 138 H 142 H Calcium 8.7 8.7 Cardiac Enzymes 11/17/23 Range/Units Unknown Total Creatine Kinase 101 (30-223) U/L Liver Function 11/17/23 Range/Units Unknown Total Bilirubin 0.5 (0.2-1.0) mg/dl AST 23 (13-39) U/L ALT 18 (7-52) U/L Alkaline Phosphatase 84 (34-104) U/L Albumin 4.0 (3.4-5.0) gm/dl
[2023-11-18] MEDS: PANTOprazole 40 MG TAB PO SCH (13:40)
--- NOTE | 2023-11-18 18:20 | Communication Note ---
Date of Service: November 18, [address] Seymour. He recommends right facial fracture correction as soon as possible. Patient and patient's prefers to follow-up with surgery in [facility]. Dr. Seymour recommends to follow-up with maxillofacial or ENT Surgeon and have surgery completed within 2 weeks. Patient and patient's understands and agrees with the plan.
--- NOTE | 2023-11-18 18:21 | Discharge Summary ---
Date of Service November 18, 2023 Admission HPI Per Admitting Provider History obtained from patient, family, and records. Limited history from patient secondary to dementia. Patient is a resident of [facility] who is in town with his to visit her granddaughter who is a [employer] student. Medical history significant for hypertension, hyperlipidemia, hypothyroidism, mood disorder, dementia, past tobacco abuse. Patient was walking with a family member when patient suddenly passed out resulting in facial trauma. Was just out for a few moments as per family. Epistaxis with right facial contusion/upper brow laceration noted. Patient denies chest pain, SOB. Denies visual problems posttrauma. Note witnessed seizures or urinary incontinence. Patient says he has passed out before but cannot give additional details. Patient was not eating well today for some reason as per family. No flulike symptoms. Right eyebrow laceration repaired at the ER. A-fib noted at the ER. No prior episodes as per family. Transient bradycardia of 50s noted at the ER. Medical History as above Surgical History : Appendectomy, carpal tunnel surgery Family History : DM Personal/Social history : Past tobacco abuse, no EtOH intake, lives with Admission Exam Per Admitting Provider GENERAL: Comfortable, demented, pleasant, no respiratory distress SKIN: Normal color, warm HEENT: alopecia, tender ecchymosis right lateral orbital area , pink palpebral conjunctivae, dry buccal mucosa NECK : Supple, no tenderness CHEST : CTA, no tenderness HEART : Irregular, no obvious murmurs ABDOMEN: Some distention, nontender EXTREMITIES : No LE swelling/tenderness, no other conspicuous deformities noted NEUROLOGIC : Demented, no facial asymmetry, gait and stance not assessed Principal Diagnosis Tachybradycardia Syndrome Syncope Facial bone fractures Discharge Data Allergies Allergy/AdvReac Type Severity Reaction Status Date / Time aspirin AdvReac Nausea Verified 11/17/23 21:12 Consultations 11/17/23 20:32 ED Decision to Admit Stat 11/17/23 23:13 Consult Oromaxillofacial Surgery Routine 11/18/23 01:52 Consult Cardiology Routine Procedures Performed Laboratory Results WBC 10.10 K/ul (4.8-10.8) 11/18/23 05:01 RBC 4.28 M/uL (4.70-6.10) L 11/18/23 05:01 Hgb 13.4 g/dl (14.0-18.0) L 11/18/23 05:01 Hct 40.8 % (42.0-52.0) L 11/18/23 05:01 MCV 95.3 fL (80.0-100.0) 11/18/23 05:01 MCH 31.3 pg (25.0-34.0) 11/18/23 05:01 MCHC 32.8 g/dL (32.0-36.0) 11/18/23 05:01 RDW Std Deviation 48.0 fL (36.4-46.3) H 11/18/23 05:01 RDW Coeff of Gay 13.7 % (11.5-14.5) 11/18/23 05:01 Plt Count 184 K/uL (130-400) 11/18/23 05:01 MPV 10.7 fL (9.4-12.4) 11/18/23 05:01 Immature Gran % (Auto) 1.3 % 11/18/23 05:01 Neut % (Auto) 78.1 % 11/18/23 05:01 Lymph % (Auto) 10.4 % 11/18/23 05:01 Real % (Auto) 9.9 % 11/18/23 05:01 Eos % (Auto) 0.1 % 11/18/23 05:01 Baso % (Auto) 0.2 % 11/18/23 05:01 Neut # (Auto) 7.89 K/uL (1.40-6.50) H 11/18/23 05:01 Lymph # (Auto) 1.05 K/uL (1.20-3.40) L 11/18/23 05:01 Real # (Auto) 1.00 K/uL (0.11-0.59) H 11/18/23 05:01 Eos # (Auto) 0.01 K/uL (0.00-0.50) 11/18/23 05:01 Baso # (Auto) 0.02 K/uL (0.00-0.20) 11/18/23 05:01 Immature Gran # (Auto) 0.13 K/uL (0.01-0.20) 11/18/23 05:01 PT 11.4 Seconds (9.0-12.0) 11/17/23 Unknown INR 1.0 (0.9-1.1) 11/17/23 Unknown APTT 26 Seconds (21-31) 11/17/23 Unknown PTT Ratio 0.9 11/17/23 Unknown VBG pH 7.41 (7.36-7.41) 11/18/23 05:01 VBG pCO2 42 mmHg (38-50) 11/18/23 05:01 VBG pO2 37 mmHg 11/18/23 05:01 VBG HCO3 27 mmol/L 11/18/23 05:01 VBG O2 Saturation 62.7 % 11/18/23 05:01 VBG Base Excess 1.7 mEq/L 11/18/23 05:01 Sodium 140 mmol/L (136-145) 11/18/23 05:01 Potassium 4.4 mmol/L (3.5-5.1) D 11/18/23 05:01 Chloride 111 mmol/L (98-107) H 11/18/23 05:01 Carbon Dioxide 24 mmol/L (21-32) 11/18/23 05:01 Anion Gap 5 (3-11) 11/18/23 05:01 BUN 19 mg/dl (6-23) 11/18/23 05:01 Creatinine 0.87 mg/dl (0.6-1.4) 11/18/23 05:01 Est Cr Clr Drug Dosing 76.9 ml/min 11/18/23 05:01 Est GFR ( Amer) 97.2 ml/min 11/18/23 05:01 Est GFR (Non-Af Amer) 83.8 ml/min 11/18/23 05:01 BUN/Creatinine Ratio 21.8 (10-20) H 11/18/23 05:01 Glucose 142 mg/dl (70-99(Fasting)) H 11/18/23 05:01 POC Glucose 139 mg/dl (70-99) H 11/18/23 02:20 Estimat Average Glucose 120 mg/dl 11/18/23 00:21 Hemoglobin A1c 5.8 % (4.5-5.6) H 11/18/23 00:21 Lactate 1.7 mmol/L (0.4-2.0) 11/18/23 05:01 Calcium 8.7 mg/dl (8.6-10.3) 11/18/23 05:01 Magnesium 1.9 mg/dl (1.7-2.4) 11/17/23 Unknown Total Bilirubin 0.5 mg/dl (0.2-1.0) 11/17/23 Unknown AST 23 U/L (13-39) 11/17/23 Unknown ALT 18 U/L (7-52) 11/17/23 Unknown Alkaline Phosphatase 84 U/L (34-104) 11/17/23 Unknown Total Creatine Kinase 101 U/L (30-223) 11/17/23 Unknown Troponin I High Sens 2.6 pg/ml (0-20) 11/17/23 Unknown Total Protein 6.3 gm/dl (6.0-8.3) 11/17/23 Unknown Albumin 4.0 gm/dl (3.4-5.0) 11/17/23 Unknown Globulin 2.3 gm/dl (2.5-4.0) L 11/17/23 Unknown Albumin/Globulin Ratio 1.7 (0.9-2) 11/17/23 Unknown TSH 1.807 uIu/ml (0.300-4.500) 11/17/23 Unknown Blood Type O Positive 11/18/23 00:21 Antibody Screen NEGATIVE 11/18/23 00:[address] 11/17/23 17:16 CT OF THE CERVICAL SPINE WITHOUT CONTRAST CLINICAL HISTORY: fall COMPARISON STUDY: No previous studies for comparison. TECHNIQUE: Helical axial images of the cervical spine were obtained without IV contrast. Sagittal and coronal reconstructions were viewed. Automated exposure control was utilized for the study. A dose lowering technique was utilized adhering to the principles of ALARA. FINDINGS: Alignment of the cervical spine is anatomic. Vertebral body heights are maintained. No acute cervical spine fracture or subluxation is present. There is no prevertebral edema. Facet joints are intact. Multifocal venous gas is noted. Gas within the anterior epidural space is likely within epidural venous plexus. Mild multilevel degenerative changes within the cervical spine are present. Several acute right-sided facial fractures are better depicted on the head CT which will be reported separately. IMPRESSION: 1. No acute cervical spine fracture or subluxation. 2. Multifocal venous gas. Although nonspecific, this is likely related to IV insertion. ACT 112: Negative or not required by law. Electronically signed by: Federico Pitt M.D. 11/17/2023 7:44 PM Chest X-Ray 11/17/23 17:16 XR chest 1V portable CLINICAL HISTORY: fall COMPARISON STUDY: No previous studies for comparison. FINDINGS: No pneumothorax is present. There is no definite pleural effusion. There is a suspected large hiatal hernia. In addition, there is hazy right lower lung opacity. This may also be related to the pleural effusion. There is no evidence for pulmonary edema. IMPRESSION: 1. No pneumothorax. 2. Large hiatal hernia. 3. Apparent hazy right lower lung opacity. This is indeterminate although may also be related to the hiatal hernia. Follow-up nonemergent PA and lateral chest radiographs are recommended for further evaluation. ACT 112: Negative or not required by law. Electronically signed by: Federico Pitt M.D. 11/17/2023 6:[address] 11/17/23 17:16 CT OF THE HEAD WITHOUT CONTRAST CLINICAL HISTORY: syncope COMPARISON STUDY: No previous studies for comparison. CT DOSE: 1153.31 mGy.cm TECHNIQUE: Helical axial images of the head were obtained without IV contrast. Automated exposure control was utilized for the study. A dose lowering technique was utilized adhering to the principles of ALARA. FINDINGS: No acute intracranial hemorrhage, midline shift or mass effect is present. The ventricular system is unremarkable. The basal cisterns are patent. No extra-axial collections are identified. Note is made of acute comminuted displaced fractures of the anterior and posterior anthony of the right maxillary sinus as well as the right orbital floor. There is also an acute nondisplaced fracture of the lateral and anterior anthony of the right orbit. The right globe appears intact. There is no retrobulbar hematoma however there is suggestion of mild right-sided proptosis. Gas within the adjacent soft tissues is related to the fracture. The right maxillary sinus is largely opacified. In addition, there is extensive venous gas, particularly within the cavernous sinus as well as gas within the right superior ophthalmic vein. There is a right periorbital contusion. IMPRESSION: 1. No acute intracranial findings. 2. No calvarial fractures. 3. Right periorbital contusion. Acute fractures of the anthony of the right maxillary sinus and right orbit, as described above. Adjacent soft tissue gas. Mild right proptosis without definite retrobulbar hematoma. Opacified right maxillary sinus related to the fractures. Facial bone CT is recommended for further evaluation. 4. Extensive venous gas. This is nonspecific but may be related to IV placement. ACT 112: Negative or not required by law. Electronically signed by: Federico Pitt M.D. 11/17/2023 7:[address] 11/17/23 23:13 Exam(s): CT FACIAL Without Contrast EXAM: CT Maxillofacial Without Intravenous Contrast CLINICAL HISTORY: Fracture TECHNIQUE: Axial computed tomography images of the face without intravenous contrast. CTDI is 36.26 mGy and DLP is 677.22 mGy-cm. Automated exposure control was utilized for the study. A dose lowering technique was utilized adhering to the principles of ALARA. COMPARISON: No relevant prior studies available. FINDINGS: Bones/joints: Minimally displaced blowout fracture of the right infraorbital rim. Mildly displaced fractures of the anterior, medial and lateral anthony of the right maxillary sinusitis which is blood-filled. Minimally displaced fracture of the right lateral and superior orbital anthony. Nondisplaced fracture of the right zygomatic arch. Soft tissues: Unremarkable. Orbits: Unremarkable. Sinuses: See above. There is mild mucosal thickening of the ethmoid and left maxillary sinuses. IMPRESSION: 1. Minimally displaced blowout fracture of the right infraorbital rim. 2. Mildly displaced fractures of the anterior, medial and lateral anthony of the right maxillary sinusitis which is blood-filled. 3. Minimally displaced fracture of the right lateral and superior orbital anthony. 4. Nondisplaced fracture of the right zygomatic arch. Electronically signed by: Akua Lima MD 11/18/23 00:59 AM Ordered Studies 11/17/23 17:16 CT cervical spine wo con Stat CT head/brain wo con Stat 11/17/23 23:13 CT face [CT facial bones wo con] Stat Hospital Course (1) Atrial fibrillation with controlled ventricular rate: Tachybradycardia Syndrome Syncope likely due to above --ECHO: Left ventricle is normal in size. Borderline concentric LVH. Ventricle wall motion is normal. EF 60 to 60%. Aortic valve sclerosis mild, without significant aortic valve stenosis. Trace mitral regurgitation --Normal TSH Avoid AV samir blocking agent Continue to hold donepezil Appreciate cardiology input Will need follow-up with cardiology as outpatient for pacemaker Monitor on telemetry Facial bone fracture --Face CT:Minimally displaced blowout fracture of the right infraorbital rim. Mildly displaced fractures of the anterior, medial and lateral anthony of the right maxillary sinusitis which is blood-filled. Minimally displaced fracture of the right lateral and superior orbital anthony. Nondisplaced fracture of the right zygomatic arch. --Head CT:No acute intracranial findings. No calvarial fractures. Right periorbital contusion. Acute fractures of the anthony of the right maxillary sinus and right orbit, as described above. Adjacent soft tissue gas. Mild right proptosis without definite retrobulbar hematoma. Opacified right maxillary sinus related to the fractures. Facial bone CT is recommended for further evaluation. Extensive venous gas. This is nonspecific but may be related to IV placement. --Neck CT:No acute cervical spine fracture or subluxation. Fall precautions Denies any significant pain Also denies any visual changes Mental status at baseline per family Appreciate Oromaxillary surgery Input Discussed with Dr. Seymour. He recommends right facial fracture correction as soon as possible. Patient and patient's prefers to follow-up with surgery in [facility]. Dr. Seymour recommends to follow-up with maxillofacial or ENT Surgeon and have surgery completed within 2 weeks. Patient and patient's understands and agrees with the plan. Hypertension Blood pressure relatively low Hold lisinopril for now Monitor Hyperlipidemia Continue atorvastatin Hypothyroidism Normal TSH Continue levothyroxine Dementia Donepezil on hold as above Prediabetes HbA1c 5.8 Hypokalemia Replace and monitor DVT Px: SCDs Re: Traumatic facial fracture Code Status Full code Total Time Total Time Spent Total Time Spent (In Minutes): 54 minutes Discharge Plan Discharge Items Patient Disposition: Home - Self-Care Reason For Visit: AFIB, FACIAL FX Discharge Diagnosis: Tachybradycardia Syndrome Syncope Facial bone fractures Activity: Per Instructions section Exercise/Sports: Wait until after follow-up appointment Non-emergency contact: Primary Care Provider and Surgeon Call non-emergency contact if: you have any medication questions, your symptoms worsen, your pain is concerning for you and you have a fever Follow-up/Referrals: Estefanía Candelaria MD [Primary Care Provider] - Diet: Heart Healthy Diet Texture: Easy to Chew Addtl Attending Provider Instructions: Follow-up with your primary care physician Dr. Candelaria in 1 week Follow-up with your support representative for possible pacemaker as advised Follow-up with your maxillofacial or ENT Surgeon as recommended for correction of right facial fracture within 2 weeks Hold taking donepezil as recommended. Hold taking lisinopril until further recommendations from your primary care physician as your blood pressure has been relatively low. Monitor your blood pressure regularly at home. Seek immediate medical attention if your symptoms reoccur or worsen Please take all medications as instructed on discharge list below. Please call if you have any questions or problems. You can reach a [facility] hospitalist on duty at [facility] 24 hours a day by calling [phone] Pending Studies at Discharge: No Stand-Alone Forms: [facility], Smoking Cessation Medications and DC Order Prescriptions: Continued multivitamin Tablet 1 tab PO DAILY omega-3 fatty acids [Fish Oil Concentrate] 1,000 mg Capsule 1,000 mg PO DAILY atorvastatin 10 mg tablet 10 mg PO QPM citalopram 10 mg tablet 10 mg PO QAM omeprazole 40 mg capsule,delayed release(DR/EC) 40 mg PO DAILY Rx Instructions: Takes in afternoon calcium carbonate [Calcium 600] 600 mg calcium (1,500 mg) Tablet 600 mg PO DAILY cyanocobalamin (vitamin B-12) [Vitamin B-12] 500 mcg Tablet 500 mcg PO DAILY ferrous sulfate [iron] 325 mg (65 mg iron) Tablet 325 mg PO DAILY levothyroxine 125 mcg tablet 125 mcg PO QPM magnesium 250 mg Tablet 250 mg PO DAILY Eye Health Tablet 2 tab PO DAILY cholecalciferol (vitamin D3) [Vitamin D3] 25 mcg (1,000 unit) Tablet 25 mcg PO DAILY Glucosamine Chondroitin 550-30-1 mg Capsule 1 cap PO DAILY turmeric root extract 500 mg Tablet 500 mg PO DAILY Rx Instructions: With curcumin Held donepezil 5 mg tablet 5 mg PO QPM Hold Instructions: Until further recommendations from your primary care physician/support representative lisinopril 5 mg tablet 5 mg PO QAM Hold Instructions: Hold taking lisinopril until further recommendations from your primary care physician. Discharge Orders: Discharge Order (Routine); Ordered 11/18/23 Ordered By: Irwin Cavanaugh Admission Data Admit Date/Time: 11/17/23 23:12 Attending Provider: Irwin Cavanaugh Admit Provider: Danial Zhao Primary Care Provider: Estefanía Candelaria Other Providers: Danial Zhao; Jose Seymour; Mili Berkowitz; Terence Arechiga; Mick Villa; Blue Isaacs; Ruben Cullen; Neal Varghese; Chantell Ponce; Cheri Crum; Doretha Lorenzana; Mili Ramirez; Cali Espino; Marc Mosquera; Nayana Santiago; Savita To; Gloria Camacho; Vivian Singh; Jacob Mercedes; Juana Toney
[2023-11-18] MEDS ORDERED: LEVOTHYROXINE SODIUM 125 MCG TABLET PO SCH (21:00)
[2023-11-18] MEDS ORDERED: ATORVASTATIN 10 MG TAB PO SCH (21:00)
== END 2023-11-18 19:06 | disposition home or self-care (01) | DRG 309 ==
LOC: ED 16:38 → 1E 23:12